=== PATIENT | male | born 1980 | race African-American/Black ===

== ENCOUNTER 2018-04-09 08:38 | Emergency (ER) | payer MEDICAID ==
[~2018-04-09] VITALS: Ht 185.4 cm; Wt 97.2 kg
[~2018-04-09 08:38] MED LIST: CIPR2.5D18 EACHEYE; LORA10TA7 PO
[2018-04-09] MEDS ORDERED: HYDROcodone/acetaminophen 10/325mg tab PO ONE (09:15)
[2018-04-09] MEDS ORDERED: ondansetron 4mg rapidly disintigrating tab PO ONE (09:15)
[2018-04-09] MEDS ORDERED: dexamethasone sod phosphate 10mg/ml inj PO STA (09:15)
[2018-04-09] MEDS ORDERED: AMOX-422 PO (09:31)
[2018-04-09] MEDS ORDERED: NAPR-56 PO (09:35)
[2018-04-09] MEDS ORDERED: ACET-1008 PO (09:35)
[2018-04-09] MEDS ORDERED: ACET-2615 PO (09:35)
[2018-04-09 10:37] VITALS: BP 117/76
== END 2018-04-09 10:38 | disposition home or self-care (01) ==
LOC: ER 08:39
DX: R51 Headache (principal); R68.84 Jaw pain; H61.21 Impacted cerumen, right ear; Z88.1 Allergy status to other antibiotic agents; Z79.2 Long term (current) use of antibiotics; Z79.899 Other long term (current) drug therapy
CPT/HCPCS: 99284; J1100

== ENCOUNTER 2019-01-17 07:34 | Emergency (ER) | payer MEDICAID ==
[~2019-01-17] VITALS: Ht 188 cm; Wt 109.5 kg
[2019-01-17 07:34] VITALS: BP 122/77
[~2019-01-17 07:34] MED LIST changes: +ACET-1008 PO; -CIPR2.5D18 EACHEYE
[2019-01-17] MEDS ORDERED: AMOX500C2 PO (08:17)
== END 2019-01-17 08:38 | disposition home or self-care (01) ==
LOC: ER 07:34
DX: H61.23 Impacted cerumen, bilateral (principal); H66.91 Otitis media, unspecified, right ear; Z88.1 Allergy status to other antibiotic agents; Z79.2 Long term (current) use of antibiotics; Z79.899 Other long term (current) drug therapy
CPT/HCPCS: 69209; 99283